=== PATIENT | female | born 1945 | race Caucasian/White ===

== ENCOUNTER 2017-01-02 01:30 | Emergency (ER) | payer MEDICARE, OTHER ==
[2017-01-02] MEDS ORDERED: ALBUTEROL SULFATE 2.5 MG/3 ML VIAL.NEB IH ONE (01:47)
[2017-01-02] MEDS ORDERED: ALBUTEROL SULFATE 2.5 MG/0.5 ML VIAL.NEB IH ONE (01:51)
--- NOTE | 2017-01-02 01:52 | ERNOTE ---
Dyspnea - General Presenting Symptoms: shortness of breath Time Seen by Provider: 01/02/17 01:47 Source: family Exam Limitations: dementia - Immun/Allergies/Home Medications Immunizations: IMMUNIZATION HX Immunizations Up to Date Yes History of Influenza Vaccine No Hx Pneumococcal Vaccination No Allergies/Adverse Reactions: Allergies morphine Adverse Reaction (Unknown, Verified 08/19/15 14:00) Home Medications: HOME MEDICATIONS Alendronate Sodium [Fosamax] 70 mg PO Q7D 08/20/12 [Last Taken 09/06/14] Calcium [Calcio [place]] 500 mg PO DAILY 08/20/12 [Last Taken Unknown] Levothyroxine Sodium [Synthroid] 50 mcg PO DAILY 08/20/12 [Last Taken Unknown] Multivit with Iron-Minerals [Central-Mi For Seniors] 1 tab PO DAILY 09/19/13 [ Last Taken Unknown] Cyanocobalamin (Vitamin B-12) [Vitamin B-12] 1,000 mg SL DAILY 09/08/14 [Last Taken Unknown] Azithromycin 250 mg PO DAILY #4 tablet 01/02/17 [Last Taken Unknown] Methylprednisolone [Medrol Dosepak] 4 mg PO DAILY #21 tab.ds.pk 01/02/17 [Last Taken Unknown] - History of Present Illness Narrative: states that she began having difficulty breathing around 21:00 tonight. They went to bed and she continued to cough and he brought her to the ED. Severity: moderate Initiating event: Reports: none Frequency of episodes: Reports: occassional episodes Associated Symptoms-Dyspnea: Reports: cough, wheezing, weakness. Denies: fever/ chills, sweating Review of Systems - Review of Systems Constitutional: Absent: recent illness, fever, chills EYE: Present: no symptoms reported ENT: Present: no symptoms reported Respiratory: Present: See HPI Cardiology: Present: no symptoms reported Gastrointestinal/Abdominal: Present: no symptoms reported Genitourinary: Present: no symptoms reported Musculoskeletal: Present: no symptoms reported Skin: Present: no symptoms reported Neurological: Present: other - poor memory Endocrine: Present: no symptoms reported Hematologic/Lymphatic: Present: no symptoms reported Psych: Present: no symptoms reported - Patient's Past Medical History Patient History - Medical: Alzheimer's Disease, Hypothyroidism Patient History - Cardiac/Respiratory: No pertinent hx Patient History - Cancer: No Hx of Cancer Patient History - Surgical Procedures: Appendectomy, Other Patient History - Other: None - Social History Living Situations: spouse Abuse History: No History of abuse Psych History: No pertinent hx Smoking Status: Current every day smoker Alcohol Use: none Drug Use: none - Immunizations Immunizations Up to Date: Yes Hx Pneumococcal Vaccination: No History of Influenza Vaccine: No Physical Exam - Physical Exam General Appearance: Present: wd/wn, alert, no apparent distress Eye Exam: Normal inspection: bilateral, PERRL: bilateral Ears, Nose, Throat: Present: normal ENT inspection Neck: Present: normal inspection, nontender Respiratory: Present: decreased breath sounds, wheezing - mostly right lower lobe Back Exam: Present: other - increased kyphoses Extremity Exam: Present: normal inspection, normal range of motion, no edema Neurological Exam: Present: alert, disoriented to place, disoriented to situation Skin Exam: Present: normal color, warm/dry ED Progress - Results and Orders Patient's Lab Results:: I have reviewed the patient's lab results. Results and Orders: Laboratory Tests 01/02/17 01/02/17 01:55 01:55 WBC 14.5 H Hgb 15.1 Hct 45.9 Plt Count 372 Neutrophils % 77.4 H Sodium 143 H Potassium 4.8 H Chloride 105 Carbon Dioxide 31.0 Anion Gap 11.8 BUN 25 H Creatinine 0.91 Est GFR (Non-Af Amer) 65 D Random Glucose 113 H Calcium 9.6 Total Bilirubin 0.7 AST 47 ALT 21 Alkaline Phosphatase 66 B-Natriuretic Peptide 135 Total Protein 7.6 Albumin 3.9 - Vital Signs Patient's Vital Signs:: I have reviewed the patient's vital signs. Vital Signs: Vital Signs 01/02/17 01:34 Temperature 36.1 C L Pulse Rate 72 Respiratory 18 Rate Blood Pressure 163/85 O2 Sat by Pulse 95 Oximetry - EKG EKG: NSR - with PVC's EKG read: Interp. by me EKG Comments: artifact from patient movement - X-Ray X-Ray #1 X-Ray: chest Interpretation: Interp. by me X-ray Comments: COPD and possible early LLL infiltrate. - Progress/Reassessment Chief Complaint: Dyspnea Departure Clinical Impression: Acute exacerbation of chronic obstructive pulmonary disease (COPD) - Departure Disposition: Home Follow Up Needed Condition: Good Instructions: Chronic Obstructive Pulmonary Disease Exacerbation Additional Instructions: See Dr. Marie within 3-5 days to follow up on her progress. Return to ER as needed. Referrals: Waleska Marie MD [Primary Care Provider] - Prescriptions: Azithromycin 250 mg PO DAILY #4 tablet Methylprednisolone [Medrol Dosepak] 4 mg PO DAILY #21 tab.ds.pk
[2017-01-02 02:02] LABS: Hematocrit 45.9 % (37.0-47.0); Hemoglobin 15.1 gm/dL (12.5-16.0); Mean Cell Volume 98.1 fl (78-100); Mean Corpuscular Hemoglobin 32.3 pg (27-31); Mean Corpuscular Hgb Conc 32.9 g/dl (32-36); Mean Platelet Volume 10.8 fl (6.0-9.5); Neutrophil # 11.2 K/mm3 (1.3-6.0); Neutrophil % 77.4 % (42-75.0); Platelet Count 372 K/mm3 (150-450); Red Blood Count 4.68 M/mm3 (4.2-5.4); Red Cell Distribution Width 13.5 % (11.5-14.0); White Blood Count 14.5 K/mm3 (4.0-10.5)
[2017-01-02 02:25] LABS: Albumin * 3.9 gm/dl (3.4-5.0); Anion Gap 11.8 mmol/L (6.8-13.8); BUN/Creatinine Ratio 27.5 (9.0-21.6); Bilirubin, Total 0.7 mg/dL (0.0-1.1); Ca. Corrected For Albumin 9.4 mg/dL (8.4-10.2); Calcium * 9.6 mg/dL (7.9-10.9); Potassium 4.8 mmol/L (3.4-4.6); Total Protein 7.6 gm/dL (6.2-8.2)
[2017-01-02] MEDS ORDERED: AZITHROMYCIN 250 MG TABLET PO ONE (02:54)
[2017-01-02] MEDS ORDERED: predniSONE 10 MG TABLET PO ONE (02:55)
[2017-01-02] MEDS ORDERED: ALBUTEROL SULFATE/IPRATROPIUM 3 ML NEBU IH ONE ×2 (02:56→03:00)
[2017-01-02] MEDS ORDERED: AZITHROMYCIN 250 MG TABLET ONE (03:00)
[2017-01-02 03:17] VITALS: BP 138/70
== END 2017-01-02 03:15 | disposition home or self-care (01) ==
LOC: ER 01:30
DX: J44.1 Chronic obstructive pulmonary disease with (acute) exacerbation (principal); Z72.0 Tobacco use; E03.9 Hypothyroidism, unspecified

== ENCOUNTER 2017-02-21 11:49 | Emergency (ER) | payer MEDICARE, OTHER ==
[2017-02-21] MEDS ORDERED: NORMAL SALINE 1,000 ML IV ONE (12:23)
[2017-02-21] MEDS ORDERED: KETOROLAC TROMETHAMINE 30 MG/ML VIAL IV ONE (12:23)
--- NOTE | 2017-02-21 12:24 | ERNOTE ---
Abdominal HPI - Narrative Date of Service: 02/21/17 - General Chief Complaint: Abdominal Pain Time Seen by Provider: 02/21/17 12:12 Source: patient, family, RN notes reviewed Exam Limitations: no limitations - Immun/Allergies/Home Medications Immunizatons: IMMUNIZATION HX Immunizations Up to Date Yes History of Influenza Vaccine No Hx Pneumococcal Vaccination No Allergies/Adverse Reactions: Allergies morphine Adverse Reaction (Unknown, Verified 02/21/17 17:03) Home Medications: HOME MEDICATIONS Alendronate Sodium [Fosamax] 70 mg PO Q7D 08/20/12 [Last Taken 09/06/14] Calcium [Calcio [place]] 500 mg PO DAILY 08/20/12 [Last Taken Unknown] Levothyroxine Sodium [Synthroid] 50 mcg PO DAILY 08/20/12 [Last Taken Unknown] Multivit with Iron-Minerals [Central-Mi [facility]iors] 1 tab PO DAILY 09/19/13 [ Last Taken Unknown] Cyanocobalamin (Vitamin B-12) [Vitamin B-12] 1,000 mg SL DAILY 09/08/14 [Last Taken Unknown] Azithromycin 250 mg PO DAILY #4 tablet 01/02/17 [Last Taken Unknown] - History of Present Illness Narrative: 71 y/o female brought to the ED by private vehicle for left lower quadrant abdominal pain that began last evening. 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 She is unsure of when she last had a bowel movement. She denies any nausea or vomiting. She also denies any urinary symptoms. She has not taken anything for pain. Date (Duration): 02/20/17 Time (Timing): 20:00 Timing: constant Quality: severe, aching Activities at Onset: none Associated Symptoms: Present: loss of appetite. Absent: back pain, chest pain, neck pain, diarrhea-gross blood, fever/chills, heartburn, nausea, vomiting, syncope, weakness Prior Abdominal Problems: Present: similar symptoms Review of Systems - Review of Systems Constitutional: Absent: recent illness, fever, chills EYE: Present: no symptoms reported ENT: Absent: nose congestion, sore throat Respiratory: Absent: shortness of breath, cough Cardiology: Absent: chest pain, syncope Gastrointestinal/Abdominal: Present: See HPI Genitourinary: Absent: frequency, dysuria, hematuria, decreased urinary output Musculoskeletal: Present: See HPI Skin: Absent: rash, lesions, lumps, change in color Neurological: Absent: headache, dizziness/light-headedness Endocrine: Present: no symptoms reported Hematologic/Lymphatic: Present: no symptoms reported Psych: Present: no symptoms reported - Patient's Past Medical History Patient History - Medical: Alzheimer's Disease, Hypothyroidism, Other - pancreatitis Patient History - Cardiac/Respiratory: COPD Patient History - Cancer: No Hx of Cancer Patient History - Surgical Procedures: Appendectomy, Back Surgery, Cataracts, Cholecystectomy, Colonoscopy, EGD, Other - pyloroplasty, vagotomy, ENT, Orthopedic Patient History - Other: None LMP (females 10-50): Menopausal - Social History Living Situations: home Abuse History: No History of abuse Psych History: No pertinent hx Smoking Status: Former smoker Alcohol Use: none Drug Use: none - Immunizations Immunizations Up to Date: Yes Hx Pneumococcal Vaccination: No History of Influenza Vaccine: No Physical Exam - Physical Exam General Appearance: Present: alert, mild distress, thin Neck: Present: normal inspection, nontender, supple Respiratory: Present: no respiratory distress, no accessory muscle use, lungs clear, decreased breath sounds Cardiovascular/Chest: Present: regular rate, rhythm, no murmur, normal peripheral pulses Gastrointestinal/Abdominal: Present: normal bowel sounds, nondistended, soft, tenderness - severe, LLQ, guarding. Absent: mass, hernia Back Exam: Present: normal inspection, no CVA tenderness Extremity Exam: Present: normal inspection, no edema Neurological Exam: Present: alert, oriented, normal mood/affect, no motor/ sensory deficits Skin Exam: Present: warm/dry, pallor ED Progress - Results and Orders Patient's Lab Results:: I have reviewed the patient's lab results. - Vital Signs Patient's Vital Signs:: I have reviewed the patient's vital signs. Vital Signs: Vital Signs 02/21/17 12:07 Temperature 36.8 C Pulse Rate 82 Respiratory 16 Rate Blood Pressure 135/70 O2 Sat by Pulse 95 Oximetry - X-Ray X-Ray #1 X-Ray: abdomen Interpretation: Reviewed by me X-ray Comments: Technique: Abdomen Flat W/ Upright * Findings: No free air. Reidentified surgical clips in the lower chest and GE junction. Nonobstructed nonspecific bowel gas pattern. There are calcific densities identified in the region of the right upper quadrant. These could be within the kidney or possibly fecaliths. Clinical correlation. Calcification within the left hemipelvis may be a phlebolith, clinical correlation. Osseous structures demonstrate no suspicious abnormality. IMPRESSION: 1. Nonobstructed nonspecific bowel gas pattern. Please see above Electronically signed by Andres De La Cruz M.D.. - CT/Ultrasound CT/Ultrasound Narrative: Comparison: August 19, 2015 and plain films the same day Technique: CT Abdomen/Pelvis W/ Contrast Findings: Exam is limited as there is extensive motion artifact due to breathing. Technologist note patient could not hold breath due to not being able to understand or follow commands. Visualized lung bases are grossly clear. There is some fatty infiltration of the liver. No focal hepatic parenchymal lesion detected. No intrahepatic biliary ductal dilatation. There is some extrahepatic biliary prominence which is stable from prior exam likely due to patient's postcholecystectomy state. The pancreas is atrophic. No identifiable peripancreatic inflammatory change. The spleen enhances homogenously. Again identified is some nodular thickening of the left adrenal gland which is nonspecific but stable from prior exam. Right adrenal gland is unremarkable. Kidneys demonstrate reidentified abnormal partially enhancing complex solid and cystic lesion. This is stable from prior examination. Clinical correlation as the possibility of malignancy cannot be excluded. No obstructive uropathy detected. No identifiable nephrolithiasis or abnormal lesion otherwise. Post surgical change identified within the GE junction region. Opacified stomach appears unremarkable. There is no evidence for intestinal obstruction. There is extensive diverticulosis. No definitive evidence for diverticulitis. Bladder is not well distended limiting evaluation. Uterus and adnexa appear grossly unremarkable. No free air or free fluid. No loculated fluid collections. There is some atherosclerosis of the aorta. No adenopathy detected. Osseous structures demonstrate decreased bony mineralization and degenerative change. IMPRESSION: 1. No identifiable acute intra-abdominal or pelvic process. Chronic findings are stable and detailed above. Exam was slightly limited due to patient's inability to hold her breath. Electronically signed by Andres De La Cruz M.D.. - Progress/Reassessment Chief Complaint: Abdominal Pain Progress:: Pain free at discharge Progress Note-Subjective: 02/21/17 13:52 Patient more comfortable after Toradol given. Abdominal xray unremarkable but WBC is 17.6. CT ordered for further eval. Plan - Plan Plan: No acute findings on CT of abdomen/pelvis, no clear reason for elevated WBC aside from the severe pain she had been having. This has resolved. Her reports this has happened several times before - she has had severe pain and been evaluated here without any findings but then the pain resolves spontaneously. UA not obtained d/t patient not voiding in specimen hat and then having loose stools as well, but as she denies any urinary symptoms I do not suspect any urinary etiology as the source of the pain or elevated white count. Patient/ agreeable to d/c with plan to return if pain returns or she has other concerning symptoms. Departure - Departure Clinical Impression: Abdominal pain of unknown etiology Disposition: Home Follow Up Needed Condition: Good Instructions: Abdominal Pain, Adult, [id number] Additional Instructions: Return to ER if symptoms come back, otherwise continue your routine medications , diet as tolerated Referrals: Waleska Marie MD [Primary Care Provider] -
[2017-02-21 12:36] LABS: Hematocrit 46.3 % (37.0-47.0); Hemoglobin 14.9 gm/dL (12.5-16.0); Mean Cell Volume 96.7 fl (78-100); Mean Corpuscular Hemoglobin 31.1 pg (27-31); Mean Corpuscular Hgb Conc 32.2 g/dl (32-36); Mean Platelet Volume 9.7 fl (6.0-9.5); Neutrophil % 85.4 % (42-75.0); Platelet Count 356 K/mm3 (150-450); Red Blood Count 4.79 M/mm3 (4.2-5.4); Red Cell Distribution Width 13.4 % (11.5-14.0); White Blood Count 17.6 K/mm3 (4.0-10.5)
[2017-02-21] MEDS ORDERED: KETOROLAC TROMETHAMINE 30 MG/ML VIAL ONE (12:38)
[2017-02-21 12:48] LABS: Albumin * 3.5 gm/dl (3.4-5.0); Anion Gap 12.7 mmol/L (6.8-13.8); BUN/Creatinine Ratio 18.9 (9.0-21.6); Bilirubin, Total 1.2 mg/dL (0.0-1.1); Ca. Corrected For Albumin 9.5 mg/dL (8.4-10.2); Calcium * 9.4 mg/dL (7.9-10.9); Carbon Dioxide 32.3 mmol/L (24-32.6); Total Protein 7.7 gm/dL (6.2-8.2)
[2017-02-21] MEDS ORDERED: DIATRIZOATE MEGLU/DIATRIZO SOD 30 ML BTL ONE (13:51)
[2017-02-21] MEDS ORDERED: DIATRIZOATE MEGLU/DIATRIZO SOD 30 ML BTL PO ONE (13:57)
[2017-02-21 17:02] VITALS: BP 152/86
== END 2017-02-21 16:53 | disposition home or self-care (01) ==
LOC: ER 11:49
DX: R10.32 Left lower quadrant pain (principal); G30.9 Alzheimer's disease, unspecified; F02.80 Dementia in other diseases classified elsewhere, unspecified severity, without behavioral disturbance, psychotic disturbance, mood disturbance, and anxiety; E03.9 Hypothyroidism, unspecified; J44.9 Chronic obstructive pulmonary disease, unspecified; K85.90 Acute pancreatitis without necrosis or infection, unspecified

== ENCOUNTER 2017-10-10 18:22 | Emergency (ER) | payer MEDICARE, OTHER ==
[2017-10-10] MEDS ORDERED: ALBUTEROL SULFATE 2.5 MG/0.5 ML VIAL.NEB IH ONE ×2 (19:03→19:44)
[2017-10-10 19:08] LABS: Hematocrit 43.9 % (37.0-47.0); Hemoglobin 14.7 gm/dL (12.5-16.0); Mean Cell Volume 93.4 fl (78-100); Mean Corpuscular Hemoglobin 31.3 pg (27-31); Mean Corpuscular Hgb Conc 33.5 g/dl (32-36); Mean Platelet Volume 9.5 fl (6.0-9.5); Neutrophil # 8.1 K/mm3 (1.3-6.0); Neutrophil % 76.8 % (42-75.0); Platelet Count 430 K/mm3 (150-450); Red Cell Distribution Width 12.9 % (11.5-14.0); White Blood Count 10.5 K/mm3 (4.0-10.5)
--- NOTE | 2017-10-10 19:18 | ERNOTE ---
Dyspnea - General Presenting Symptoms: shortness of breath Time Seen by Provider: 10/10/17 19:05 Source: family Exam Limitations: dementia - Immun/Allergies/Home Medications Immunizations: IMMUNIZATION HX Immunizations Up to Date Yes History of Influenza Vaccine No Hx Pneumococcal Vaccination No Allergies/Adverse Reactions: Allergies morphine Adverse Reaction (Unknown, Verified 10/10/17 18:34) Home Medications: HOME MEDICATIONS Alendronate Sodium [Fosamax] 70 mg PO Q7D 08/20/12 [Last Taken 09/06/14] Calcium [Calcio [place]] 500 mg PO DAILY 08/20/12 [Last Taken Unknown] Levothyroxine Sodium [Synthroid] 75 mcg PO DAILY 08/20/12 [Last Taken Unknown] Albuterol Sulfate [Proventil Hfa] 6.7 gm IH Q6H PRN 10/10/17 [Last Taken Unknown ] Cholecalciferol (Vitamin D3) [Vitamin D3] 1,000 unit PO DAILY 10/10/17 [Last Taken Unknown] Multivit-Min/FA/Lycopen/Lutein [[facility] [facility] Multivitamin Tab] 1 each PO DAILY 10/10/17 [Last Taken Unknown] - History of Present Illness Narrative: Patient has dementia and the history is obtained from . Apparently she was doing well most of the day walking around stores without problems. A couple of hours ago she started to appear to be short of breath while sitting. It got worse after she walked down and up the basement steps. On arrival of EMS she had O2 sats in the 80's. She is feeling much better since getting to the ER, denies any current SOB, no other pain or symptoms, did not get the flu shot this season, She was diagnosed with COPD, stopped smoking 9 months ago. Review of Systems - Review of Systems Constitutional: Absent: recent illness, fever, chills EYE: Absent: double vision ENT: Absent: nose congestion, sore throat Respiratory: Present: See HPI, shortness of breath Cardiology: Absent: chest pain Gastrointestinal/Abdominal: Absent: nausea, vomiting, abdominal pain Genitourinary: Present: no symptoms reported Musculoskeletal: Present: no symptoms reported Skin: Present: no symptoms reported Neurological: Absent: headache, weakness, numbness - Patient's Past Medical History Patient History - Medical: Alzheimer's Disease, Dementia, Hypothyroidism, Osteoporosis, Other Patient History - Cardiac/Respiratory: Bronchitis, COPD, Pneumonia Patient History - Cancer: No Hx of Cancer Patient History - Surgical Procedures: Appendectomy, Back Surgery, Cataracts, Cholecystectomy, Colonoscopy, EGD, Other, ENT, Orthopedic Patient History - Other: None LMP (females 10-50): Menopausal - Social History Living Situations: home Abuse History: No History of abuse Psych History: No pertinent hx Smoking Status: Former smoker Alcohol Use: none Drug Use: none - Immunizations Immunizations Up to Date: Yes Hx Pneumococcal Vaccination: No History of Influenza Vaccine: No Physical Exam - Physical Exam General Appearance: Present: wd/wn, alert, no apparent distress Head Exam: Present: normal inspection, no evidence of injury Eye Exam: Normal inspection: bilateral, PERRL: bilateral Ears, Nose, Throat: Present: normal pharynx Neck: Present: normal inspection, nontender Respiratory: Present: no respiratory distress, no accessory muscle use, chest nontender, decreased breath sounds, wheezing Cardiovascular/Chest: Present: regular rate, rhythm, no murmur Gastrointestinal/Abdominal: Present: nontender Extremity Exam: Present: no edema Neurological Exam: Present: alert, no motor/sensory deficits Skin Exam: Present: normal color, warm/dry ED Progress - Results and Orders Patient's Lab Results:: I have reviewed the patient's lab results. - Vital Signs Patient's Vital Signs:: I have reviewed the patient's vital signs. Vital Signs: Vital Signs 10/10/17 10/10/17 10/10/17 18:29 18:34 18:35 Temperature 37.2 C Pulse Rate 98 90 98 Respiratory 35 H Rate Blood Pressure 164/80 O2 Sat by Pulse 100 Oximetry - EKG EKG: NSR, RBBB - incomplete EKG read: Interp. by me - X-Ray X-Ray #1 X-Ray: chest - hyperinflation consistent with COPD, no acute changes Interpretation: Interp. by me - Progress/Reassessment Chief Complaint: Dyspnea Progress Note-Subjective: 10/10/17 20:02 patient continues to be comfortable, no SOB, sats 95% discussed results with family after neb treatment wheezing has resolved Departure Clinical Impression: COPD (chronic obstructive pulmonary disease) Qualifiers: COPD type: unspecified COPD Qualified Code(s): J44.9 - Chronic obstructive pulmonary disease, unspecified - Departure Disposition: Home self-care Condition: Good Instructions: Chronic Obstructive Pulmonary Disease, [id number] Additional Instructions: use the nebulizer as needed Referrals: Waleska Marie MD [Primary Care Provider] -
[2017-10-10 19:22] LABS: Albumin * 3.5 gm/dl (3.4-5.0); Anion Gap 10.7 mmol/L (6.8-13.8); BUN/Creatinine Ratio 26.2 (9.0-21.6); Bilirubin, Total 0.3 mg/dL (0.0-1.1); Ca. Corrected For Albumin 9.3 mg/dL (8.4-10.2); Calcium * 9.2 mg/dL (7.9-10.9); Carbon Dioxide 30.1 mmol/L (24-32.6); Potassium 3.8 mmol/L (3.4-4.6); Total Protein 7.3 gm/dL (6.2-8.2)
[2017-10-10 20:12] VITALS: BP 136/64
== END 2017-10-10 20:09 | disposition home or self-care (01) ==
LOC: ER 18:22
DX: M81.0 Age-related osteoporosis without current pathological fracture; E03.9 Hypothyroidism, unspecified; J44.9 Chronic obstructive pulmonary disease, unspecified; Z87.891 Personal history of nicotine dependence